=== PATIENT | male | born 1930 | race Caucasian/White ===

== ENCOUNTER 2016-09-11 13:33 | Inpatient (IN) | payer MEDICARE ==
[2016-09-11 14:28] LABS: AUTOMATED BASOPHIL 0.4 % (0-2); AUTOMATED EOSINOPHIL 1.5 % (0-5); AUTOMATED LYMPH 28.2 % (17-44); AUTOMATED MONOCYTE 7.2 % (3-10); AUTOMATED NEUTROPHIL 62.7 % (45-76); MPV 8.7 fL (7.4-10.4)
[2016-09-11 14:37] LABS: BLOOD UREA NITROGEN 16 MG/DL (9-20); CALCIUM 9.6 MG/DL (8.4-10.2); CALCULATED OSMOLALITY 272 MOs/Kg (270-290); CHLORIDE 102 mEq/L (98-107); CPK TOTAL WITH POSSIBLE MB 26 IU/L (55-170); GLUCOSE 196 MG/DL (70-99); SODIUM LEVEL 138 mEq/L (137-146)
[2016-09-11 14:39] LABS: PARTIAL THROMB. TIME 24.3 SEC (22-35)
--- NOTE | 2016-09-11 15:27 | DIRPT ---
CLINICAL DATA: Patient with lower extremity symptoms for 1 week. EXAM: CHEST 2 VIEW COMPARISON: Chest radiograph 08/16/2016 FINDINGS: Stable cardiac and mediastinal contours. Re- demonstrated mass within the left mid lung. Right lung is clear. No pleural effusion or pneumothorax. Mid thoracic spine degenerative changes. IMPRESSION: Re- demonstrated mass within the left mid lung compatible with known carcinoma. No acute cardiopulmonary process. Electronically Signed By: Dung Malhotra M.D. On: 09/11/2016 15:25
--- NOTE | 2016-09-11 16:44 | EDPRACDOC ---
- General Information Chief Complaint: Generalized Weakness Stated Complaint: LEFT LEG WEAKNESS Time Seen by Provider: 09/11/16 16:16 Information Source: Patient Mode of Arrival:: Car Home Medications: Home Medications Ergocalciferol (Vitamin D2) [Vitamin D] 50,000 units PO WESA 03/06/15 Amlodipine [Norvasc] 10 mg PO DAILY 09/11/16 Gabapentin 100 mg PO Q8H PRN 09/11/16 Insulin Glargine [Lantus Pen] 18 units SQ DAILY 09/11/16 Lisinopril 40 mg PO DAILY 09/11/16 Meclizine HCl [Antivert] 25 mg PO TID 09/11/16 Omeprazole 20 mg PO DAILY 09/11/16 Allergies/Adverse Reactions: Allergies Allergy/AdvReac Type Severity Reaction Status Date / Time No Known Allergies Allergy Verified 09/11/16 14:17 - History of Present Illness Exact Onset of Symptoms: Unknown Symptoms Started: Reports: Gradually Weakness: Left: Leg Associated signs and symptoms:: Reports: None ED Past Medical History - History Reviewed Yes Nurses notes reviewed and agree except as marked - Patient Medical History Neurological History: Denies: Cerebrovascular Accident, Dementia Cardiac History: Reports: Coronary Artery Disease, Hypertension GI/ History: Reports: Renal Disease, Renal Failure (ckd-3), Kidney Stones, Gastroesophageal Reflux, Ulcer (perforated in 2010), Diverticulosis Musculoskeletal History: Reports: Arthritis, Osteoarthritis Psychological History: Denies: Depression, Substance Use Disorder Systemic History: Reports: Diabetes. Denies: Hypothyroidism Surgical History: Reports: Other (hemicolectomy, repair perforated ulcer, L rotator cuff, lumbar laminectomy) - Family Medical History Reports: Cardiac Disorders (father- CAD, [place]) - Social Medical History Smoking Status: Former smoker Social History: Denies: Substance Use Disorder EDM Review of Systems - Review of Systems ROS Negative Except as Marked: Yes All systems reviewed and were negative except as marked - Physical Exam Constitutional: Alert (Awake), No apparent distress Oriented to: Time, Person, Place Last recorded Vital Signs: Last Vital Signs Temp 97.5 F 09/11/16 16:29 Pulse 96 09/11/16 16:29 Resp 20 09/11/16 16:29 BP 155/82 09/11/16 16:29 Pulse Ox 92 09/11/16 16:29 Oxygen Pulse Oxygen Saturation 92 O2 Device Room Air Oxygen Flow Rate Fraction of Inspired Oxygen ( FIO2) - HEENT Head: Normal ( normocephalic) Eye Exam: Normal (PERRL, EOMI, Sclera white) Oropharynx: Normal (Pharynx:Moist without exudate,Gums-no swelling) Tympanic Membrane: Normal ENT EAC: Normal TMJ: Normal Nose: No Symptoms Reported (septum midline) Neck: Normal (FROM, trachea at midline) - Respiratory/Cardiovascular Respiratory: Normal - CTA (BBS clear to auscultation without adventitious sounds ) Cardiovascular: Normal (RRR without murmur, gallop or rub) - GI Auscultation: Normal (NABS) Palpation: Normal (Soft,No rebound or guarding, non distended) Tenderness: Non tender Guerrero's Sign: Negative - Musculoskeletal Back: Normal (Non-Tender) Extremities: Normal (Normal tone, Pulses 2+ No cyanosis or edema, FROM) - Integumentary Skin: Normal, Warm, Dry Lymphatics: Normal (no adenopathy) - Neurologic Memory Impaired: Normal Motor Function: Abnormal (WEAKNEES LLE ON FLEXION) Cranial Nerve: Normal (CN II-X11 intact sensation, strength 5/5) Cerebellar: Normal Mood Description: Normal Perception: Normal - Results 09/11/16 14:19 09/11/16 14:19 WBC 9.8 xk/uL (3.8-10.8) 09/11/16 14:19 RBC 4.92 xM/uL (4.70-6.10) 09/11/16 14:19 Hgb 16.3 g/dL (14.0-18.0) 09/11/16 14:19 Hct 47.1 % (42-52) 09/11/16 14:19 MCV 96 fL (80-94) H 09/11/16 14:19 MCH 33.0 pg (27-32) H 09/11/16 14:19 MCHC 34.5 g/dl (33-36) 09/11/16 14:19 RDW 12.3 % (11.5-14.5) 09/11/16 14:19 Plt Count 228 xk/uL (130-400) 09/11/16 14:19 MPV 8.7 fL (7.4-10.4) 09/11/16 14:19 Neut % (Auto) 62.7 % (45-76) 09/11/16 14:19 Lymph % (Auto) 28.2 % (17-44) 09/11/16 14:19 [place] % (Auto) 7.2 % (3-10) 09/11/16 14:19 Eos % (Auto) 1.5 % (0-5) 09/11/16 14:19 Baso % (Auto) 0.4 % (0-2) 09/11/16 14:19 Absolute Neuts (auto) 6.08 xk/uL (1.7-8.2) 09/11/16 14:19 Absolute Lymphs (auto) 2.74 xk/uL (0.65-4.75) 09/11/16 14:19 PT 10.6 SEC (9.2-11.2) 09/11/16 14:19 INR 1.0 09/11/16 14:19 APTT 24.3 SEC (22-35) 09/11/16 14:19 Sodium 138 mEq/L (137-146) 09/11/16 14:19 Potassium 4.1 mEq/L (3.5-5.1) 09/11/16 14:19 Chloride 102 mEq/L (98-107) 09/11/16 14:19 Carbon Dioxide 22 mMOL/L (22-33) 09/11/16 14:19 Anion Gap 18 mEq/L (8-16) H 09/11/16 14:19 BUN 16 MG/DL (9-20) 09/11/16 14:19 Creatinine 1.50 MG/DL (0.66-1.25) H 09/11/16 14:19 Estimated GFR (MDRD) 44 mL/min (>=60) L 09/11/16 14:19 Glucose 196 MG/DL (70-99) H 09/11/16 14:19 Calculated Osmolality 272 MOs/Kg (270-290) 09/11/16 14:19 Calcium 9.6 MG/DL (8.4-10.2) 09/11/16 14:19 Total Bilirubin 1.4 MG/DL (0.2-1.3) H 09/11/16 14:19 AST 42 IU/L (17-59) 09/11/16 14:19 ALT 44 IU/L (21-72) 09/11/16 14:19 Alkaline Phosphatase 112 IU/L (50-160) 09/11/16 14:19 Creatine Kinase 26 IU/L (55-170) L 09/11/16 14:19 Troponin I < 0.01 ng/mL (<.04) 09/11/16 14:19 Total Protein 8.0 G/DL (6.3-8.2) 09/11/16 14:19 Albumin 4.2 G/DL (3.5-5.0) 09/11/16 14:19 Lab Results 09/11/16 09/11/16 09/11/16 14:19 14:19 14:19 WBC 9.8 RBC 4.92 Hgb 16.3 Hct 47.1 MCV 96 H MCH 33.0 H MCHC 34.5 RDW 12.3 Plt Count 228 MPV 8.7 Neut % (Auto) 62.7 Lymph % (Auto) 28.2 [place] % (Auto) 7.2 Eos % (Auto) 1.5 Baso % (Auto) 0.4 Absolute Neuts (auto) 6.08 Absolute Lymphs (auto) 2.74 PT 10.6 INR 1.0 APTT 24.3 Sodium 138 Potassium 4.1 Chloride 102 Carbon Dioxide 22 Anion Gap 18 H BUN 16 Creatinine 1.50 H Estimated GFR (MDRD) 44 L Glucose 196 H Calculated Osmolality 272 Calcium 9.6 Total Bilirubin 1.4 H AST 42 ALT 44 Alkaline Phosphatase 112 Creatine Kinase 26 L Troponin I < 0.01 Total Protein 8.0 Albumin 4.2 - Departure Yes I personally saw and evaluated the patient. Disposition: Admit IP To This Hospital Condition: Good Final Diagnosis: LLE WEAKNESS Instructions: Weakness (General) Referrals: Lisa Clemente MD [Primary Care Provider] - One Week Decision to Admit Time: 18:11 (IKRAM) Decision to admit date: 09/11/16 Decision to admit: from ED
--- NOTE | 2016-09-11 16:58 | DIRPT ---
CLINICAL DATA: LEFT leg weakness which began 1 week ago, improved, and then worsened. EXAM: CT HEAD WITHOUT CONTRAST TECHNIQUE: Contiguous axial images were obtained from the base of the skull through the vertex without intravenous contrast. COMPARISON: 08/19/2015 MR. FINDINGS: No evidence for acute infarction, hemorrhage, mass lesion, hydrocephalus, or extra-axial fluid. Advanced atrophy. Extensive white matter disease. Vascular calcification. Calvarium intact. No sinus or mastoid air fluid levels. IMPRESSION: Negative exam. No acute intracranial findings. Chronic changes as described without features suggestive of large vessel occlusion or RIGHT parasagittal cortical infarct. Electronically Signed By: Doc Falcon M.D. On: 09/11/2016 16:56
[2016-09-11] MEDS ORDERED: ASPIRIN 300 MG SUPP PR ONE (17:10)
[2016-09-11] MEDS ORDERED: ONDANSETRON HCL 4 MG/2 ML VIAL IV PRN (18:16)
[2016-09-11] MEDS ORDERED: GABAPENTIN 100 MG CAP PO PRN (18:16)
[2016-09-11] MEDS ORDERED: LORAZEPAM 1 MG TAB PO PRN (18:16)
[2016-09-11] MEDS ORDERED: ACETAMINOPHEN 325 MG/TAB TABLET PO PRN (18:16)
[2016-09-11] MEDS ORDERED: DEXTROSE 25 GM/50 ML PFS IV PRN (18:22)
[2016-09-11] MEDS ORDERED: GLUCAGON 1 MG VIAL SQ PRN (18:22)
[2016-09-11] MEDS ORDERED: GLUCOSE (ORAL GEL) 15 GM TUBE PO PRN (18:22)
[2016-09-11] MEDS ORDERED: GLARGINE INSULIN (LANTUS) 100 UNITS/ML PEN SQ SCH (19:00)
--- NOTE | 2016-09-11 20:16 | HISTPHYS ---
- Chief Complaint Left-sided weakness - History of Present Illness This is an 86-year-old male with a known history of lung cancer who has not sought treatment for this, who is being admitted tonight due to concern for CVA. Patient and his provide the history, they are good historians. 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 This has continued until the present day, though has improved slightly. In addition, about a week ago he developed weakness is left leg, to the point where he is unable to bring his knee up toward his chest, or lift his left leg. He has had trouble walking, this has worsened over time and got worse to the point where today he was unable to ambulate without a walker. He tells me that he has had no associated pain or fever. Denies any back pain specifically. He says that his leg is so weak that he is basically unable to tell where it will go. No confusion, vision changes or headache. No dizziness or vertigo. No difficulty swallowing or slurred speech, or facial droop. He has never had symptoms like this before. Decided to come to the hospital today due to the fact that he was having more more difficulty walking. - Medical History Cardiac History: Reports: Coronary Artery Disease, Hypertension GI/ History: Reports: Renal Disease, Renal Failure (ckd-3), Kidney Stones, Gastroesophageal Reflux, Ulcer (perforated in 2010), Diverticulosis Musculoskeletal History: Reports: Arthritis, Osteoarthritis Systemic History: Reports: Diabetes. Denies: Hypothyroidism Neurological History: Denies: Cerebrovascular Accident, Dementia Psychological History: Denies: Depression, Substance Use Disorder - Surgical History Reports: Other (hemicolectomy, repair perforated ulcer, L rotator cuff, lumbar laminectomy) - Medictions/Allergies Allergies No Known Allergies Allergy (Verified 09/11/16 14:17) Home Medications Ergocalciferol (Vitamin D2) [Vitamin D] 50,000 units PO WESA 03/06/15 Amlodipine [Norvasc] 10 mg PO DAILY 09/11/16 Gabapentin 100 mg PO Q8H PRN 09/11/16 Insulin Glargine [Lantus Pen] 18 units SQ DAILY 09/11/16 Lisinopril 40 mg PO DAILY 09/11/16 Meclizine HCl [Antivert] 25 mg PO TID 09/11/16 Omeprazole 20 mg PO DAILY 09/11/16 - Family History Reports: Cardiac Disorders (father- CAD, [place]) - Social History Smoking Status: Former smoker Social History: Denies: Substance Use Disorder - Review of Systems Yes All systems reviewed and were negative except as marked - Physical Exam Vital Signs: Initial Vitals Temperature 97.7 F 09/11/16 14:15 Pulse Rate 111 09/11/16 14:15 Respiratory Rate 18 09/11/16 14:15 Blood Pressure 126/72 09/11/16 14:15 Pulse Oxygen Saturation 94 09/11/16 14:15 Constitutional: Alert (Awake, Fully oriented, well appearing. No apparent distress) Oriented to: Time, Person, Place - HEENT Head: Normal (normocephalic,atraumatic, trachea midline) Eye: Normal (EOMI, Sclera white) Oropharynx: Normal (moist) Nose: No Symptoms Reported (without discharge or bleeding) Respiratory: Normal - CTA (Clear to auscultation bilaterally, no wheezing,rales or rhonchi. No use of accessory muscles) Cardiovascular: Normal (RRR, no murmurs, rubs or gallops) - GI Palpation: Normal (soft, non distended and nontender) - Musculoskeletal Extremities: Normal (normal tone, no cyanosis or edema) - Integumentary Skin: Normal (no rashes or lesions) - Neurologic Mood Description: Normal (Fully oriented and appropiate affect) Sensation is intact, plantar flexion and plantar extension are normal bilaterally. He is unable to flex his left hip against any resistance. Unable to lift against gravity, 2/5 strength. Right side is totally normal. Upper extremity strength and sensation are normal and intact. - Focused CV Perfusion Exam Vital Signs: Last Vital Signs Temp 97.7 F 09/11/16 17:43 Pulse 94 09/11/16 19:28 Resp 20 09/11/16 19:28 BP 125/76 09/11/16 19:28 Pulse Ox 90 L 09/11/16 19:28 - Lab Results Laboratory Tests 09/11/16 09/11/16 09/11/16 14:19 14:19 14:19 WBC 9.8 Hgb 16.3 Hct 47.1 Plt Count 228 INR 1.0 Potassium 4.1 BUN 16 Creatinine 1.50 H - Diagnostic Findings Chest x-ray: Known lung mass. CT of the head: No evidence for acute infarction, hemorrhage, mass lesion, hydrocephalus, or extra-axial fluid. Advanced atrophy. Extensive white matter disease. Vascular calcification. Calvarium intact. No sinus or mastoid air fluid levels. - Assessment (1) CVA (cerebral vascular accident) I63.9 - CEREBRAL INFARCTION, UNSPECIFIED Acute Suspected CVA, resulting in left lower extremity weakness. Given the focality of symptoms, could also potentially be some sort of nerve impingement perhaps related to his known malignancy. However, given the patient's recalcitrant towards any sort of medical treatment for his cancer or otherwise, pursuing spinal imaging may be of limited utility. Initial head CT is unremarkable. Patient will be admitted to the hospital using CVA order set he will be kept NPO and he still he is seen by speech therapy, physical therapy and occupational therapy have also been consulted. Will obtain MRI of the brain without contrast tomorrow morning to further evaluate his intracranial perfusion. Patient was started on aspirin, as well as statin. Will check fasting lipids, tsh, RPR and sedimentation rate. (2) Bronchogenic cancer of left lung C34.92 - MALIGNANT NEOPLASM OF UNSP PART OF LEFT BRONCHUS OR LUNG Acute This was discovered about 18 months ago. Patient has elected not to pursue any sort of treatment. (3) DM (diabetes mellitus) type II uncontrolled, periph vascular disorder E11.51 - TYPE 2 DIABETES W DIABETIC PERIPHERAL ANGIOPATH W/O GANGRENE; E11.65 - TYPE 2 DIABETES MELLITUS WITH HYPERGLYCEMIA Acute Check hemoglobin A1c and urine microalbumin. Will monitor fasting blood glucose and use sliding scale insulin to maintain euglycemic state. (4) Chronic kidney disease, stage III (moderate) N18.3 - CHRONIC KIDNEY DISEASE, STAGE 3 (MODERATE) Chronic Follow daily. (5) GERD (gastroesophageal reflux disease) K21.9 - GASTRO-ESOPHAGEAL REFLUX DISEASE WITHOUT ESOPHAGITIS Chronic Continue PPI. (6) HTN (hypertension) I10 - ESSENTIAL (PRIMARY) HYPERTENSION Chronic Will allow permissive hypertension in the 1st 24 hours. Case Care Discussed with: Patient, Family Total Time: 56
[2016-09-11] MEDS: ATORVASTATIN 20 MG TAB PO SCH (20:17)
[2016-09-11] MEDS: MECLIZINE 25 MG TAB PO SCH (20:18)
[2016-09-11] MEDS: ENOXAPARIN 40 MG/0.4 ML PFS SQ SCH (20:18)
[2016-09-11] MEDS: REGULAR INSULIN 100 UNITS/ML - 3 ML VIAL SQ SCH (20:18)
[2016-09-11] MEDS ORDERED: Vaccine Screening Complete SCH (21:00)
[2016-09-12 03:33] VITALS: BMI 21.4
[2016-09-12] MEDS: PANTOPRAZOLE 40 MG TAB PO SCH (05:29)
[2016-09-12] MEDS: MECLIZINE 25 MG TAB PO SCH ×3 (05:29→20:01)
[2016-09-12 05:31] LABS: MPV 9.1 fL (7.4-10.4)
[2016-09-12 05:44] LABS: BLOOD UREA NITROGEN 16 MG/DL (9-20); CALCIUM 9.5 MG/DL (8.4-10.2); CALCULATED OSMOLALITY 272 MOs/Kg (270-290); CHLORIDE 103 mEq/L (98-107); GLUCOSE 90 MG/DL (70-99); LDL (calc.) 83.6 MG/DL (<100); SODIUM LEVEL 141 mEq/L (137-146); VLDL (calc.) 31.4 MG/DL (5-40)
[2016-09-12] MEDS: REGULAR INSULIN 100 UNITS/ML - 3 ML VIAL SQ SCH ×4 (06:25→20:00)
[2016-09-12] MEDS ORDERED: NS 250 ML IV ONE (08:00)
[2016-09-12] MEDS ORDERED: Non-Formulary Medication ITEM (Omeprazole [Omeprazole] 20 MG) PO SCH (09:00)
[2016-09-12] MEDS: GLARGINE INSULIN (LANTUS) 100 UNITS/ML PEN SQ SCH (10:16)
[2016-09-12] MEDS: NS 1,000 ML IV SCH ×2 (10:34→19:58)
--- NOTE | 2016-09-12 14:48 | DIRPT ---
CLINICAL DATA: Left leg weakness for 1 week. History of lung cancer EXAM: MRI HEAD WITHOUT AND WITH CONTRAST TECHNIQUE: Multiplanar, multiecho pulse sequences of the brain and surrounding structures were obtained without and with intravenous contrast. CONTRAST: 14 cc MultiHance intravenous COMPARISON: 08/19/2015 FINDINGS: Calvarium and upper cervical spine: No focal marrow signal abnormality. Orbits: No significant findings. Sinuses and Mastoids: Chronic mucosal thickening/ fluid in bilateral mastoid air cells with clear nasopharynx. Brain: There is various intensity foci of restricted diffusion in the posterior right cerebral hemisphere, cortical and subcortical and located in the posterior frontal lobe and lateral right occipital lobe. These are in the MCA and posterior border zone territories and are consistent with acute and subacute infarcts. Roughly linear lobulated area of enhancement in the cortical and subcortical right posterior frontal lobe measuring up to 15 mm in length. This is likely subacute enhancing infarct, but in the setting of lung cancer follow-up in 3 months is recommended to exclude superimposed early metastatic disease. There is extensive chronic small vessel disease with ischemic gliosis confluent throughout the deep cerebral white matter and patchy in the subcortical region. Small-vessel ischemic changes also present in the joe. Generalized cerebral volume loss. No acute hemorrhage, hydrocephalus, or major vessel occlusion. IMPRESSION: 1. Small acute and subacute infarcts in the right MCA and posterior border zone territories. 2. Enhancement in the posterior right frontal lobe is almost certainly ischemic, but given history of lung cancer three-month follow-up MRI with contrast is recommended. 3. Extensive chronic small vessel disease. Electronically Signed By: Lawrence Garvey M.D. On: 09/12/2016 14:45
--- NOTE | 2016-09-12 14:51 | DIRPT ---
CLINICAL DATA: 86-year-old male with lung cancer. Low back pain. Left leg weakness for the past week. Unsteady gait. Subsequent encounter. EXAM: MRI THORACIC AND LUMBAR SPINE WITHOUT AND WITH CONTRAST TECHNIQUE: Multiplanar and multiecho pulse sequences of the thoracic and lumbar spine were obtained without and with intravenous contrast. CONTRAST: 14 cc MultiHance. COMPARISON: PET-CT 03/31/2015. MR brain performed same date and dictated separately. FINDINGS: MR THORACIC SPINE FINDINGS Overall, no definite metastatic disease noted throughout the thoracic spine. On the post-contrast images (series 12, images 13 and 14), question slight enhancement within the left T10 and left T11 facet may be related to artifact rather than metastatic disease as no accompanying abnormality is seen on STIR sequence. If the patient had any progressive symptoms referable to this level, followup imaging with attention to these regions recommended. Scattered small focal fatty deposits. Scattered minimal to mild degenerative changes most notable C5-6 bulge with slight narrowing ventral aspect of the thecal sac. No abnormal signal or enhancement of the cord. Left chest mass incompletely assessed. This can be further delineated with chest CT. Atherosclerotic type changes of the aorta with slight ectasia. MR LUMBAR SPINE FINDINGS Last fully open disk space is labeled L5-S1. Present examination incorporates from T12-L1 disc space through the S2-S3 level. Conus upper L1 level. No abnormal enhancement of the conus or nerve roots. No osseous destructive lesion to suggest osseous metastatic disease. Atrophic right kidney. Atherosclerotic type changes aorta with ectasia. L1-2: Minimal bulge greater right foraminal position without nerve root compression. L2-3: Minimal facet degenerative changes. L3-4: Mild facet degenerative changes. Mild bulge greater to right. Minimal indentation right ventral thecal sac. L4-5: Prior right hemilaminectomy. Disc degeneration with disc space narrowing. Bulging disc with osteophyte greater extension right foraminal/ lateral position touching but not compressing the exiting right L4 nerve root. No spinal stenosis. L5-S1: Negative. IMPRESSION: MR THORACIC SPINE Overall, no definite metastatic disease noted throughout the thoracic spine. On the post-contrast images (series 12, images 13 and 14), question slight enhancement within the left T10 and left T11 facet may be related to artifact rather than metastatic disease as no accompanying abnormality is seen on STIR sequence. If the patient had any progressive symptoms referable to this level, followup imaging with attention to these regions recommended. No abnormal signal or enhancement of the cord. Left chest mass incompletely assessed. This can be further delineated with chest CT. Atherosclerotic type changes of the aorta with slight ectasia. MR LUMBAR SPINE No evidence of metastatic disease in lumbar region. Atrophic right kidney. Atherosclerotic type changes aorta with ectasia. L3-4 mild bulge greater to right. Minimal indentation right ventral thecal sac. L4-5 prior right hemilaminectomy. Bulging disc with osteophyte greater extension right foraminal/ lateral position touching but not compressing the exiting right L4 nerve root. Electronically Signed By: Jose Greenberg M.D. On: 09/12/2016 14:48
--- NOTE | 2016-09-12 15:49 | GENMEDPROG ---
Chief Complaint: Leg weakness. Subjective Note: 86-year-old gentleman with known lung cancer who has opted not to have any treatment presented to the emergency department with left leg weakness. Given his history of lung cancer MRI of the thoracic and lumbar spine was obtained. Did not show any metastatic disease. MRI of the brain shows an acute infarction and another area with questionable infarction versus tumor. Repeat MRI is recommended in 3 months. Patient this morning states that his leg is working better. Notes Reviewed: Yes Events from last night noted and discussed with Clinical Staff Current Medication List: Reviewed Currently: Reports: Tobacco Use/Hx (Former smoker). Denies: Diarrhea, Fever/ Chills, Ambulating DVT Prophylaxis: Yes - Physical Examination Vital Signs and I&O: Last Vital Signs Temp 98.3 F 09/12/16 11:58 Pulse 86 09/12/16 11:58 Resp 20 09/12/16 11:58 BP 146/77 09/12/16 11:58 Pulse Ox 94 09/12/16 11:58 Oxygen Pulse Oxygen Saturation 94 O2 Device Nasal Cannula Oxygen Flow Rate 2 Fraction of Inspired Oxygen ( FIO2) Intake & Output 09/09/16 09/10/16 09/11/16 09/12/16 23:59 23:59 23:59 23:59 Intake Total 445 Output Total 400 Balance 45 Patient's weight 71.894 kg General: Alert, Oriented x3, No acute distress, Well appearing, Well nourished HEENT: Normal (Normocephalic, atraumatic;EOMI.Sclera white, Nares patent, without discharge or bleeding. No oropharyngeal lesions or erythema. Mucous membranes are dry.) Neck: Non-tender, Full range of motion, Normal Trachea alignment, Normal inspection (No cervical lymphadenopathy. No supraclavicular lymphadenopathy.), No Masses palpable, Supple Lymphatics: Normal (No lymph node swelling or pain.) Respiratory: Normal - CTA (Clear to auscultation bilaterally, no wheezing,rales or rhonchi. No use of accessory muscles) Cardiovascular: Regular rate and rhythm (No bradycardia or tachycardia), Normal S1, No Gallops,Rubs/Murmurs, Normal S2, Good Pedal Pulses (DP pulses 2+ bilaterally) GI: Normal bowel sounds (normal active sounds), Soft (non-distended), Non tender , No hepatospenomegaly, No masses Extremities/Musculoskeletal: negative: Motor 5/5 throughout (Left lower extremity weakness) Skin: Warm,Dry and Intact, No rashes, No significant lesion Neurological: Normal speech. negative: Normal Steady Gait, Strength at 5/5 X4 ext Psych/Mental Status: Appropriate, Normal Affect Lab/DI/Studies Reviewed: Abnormal Lab Results 09/11/16 09/11/16 09/12/16 14:19 20:07 04:45 RBC Hct MCH ESR 22 H Creatinine 1.40 H Estimated GFR (MDRD) 48 L POC Capillary Glucose 133 H Triglycerides 157 H 09/12/16 04:45 RBC 4.43 L Hct 41.9 L MCH 33.3 H ESR Creatinine Estimated GFR (MDRD) POC Capillary Glucose Triglycerides Laboratory Tests 09/11/16 14:19 Hemoglobin A1c 5.4 - Assessment (1) CVA (cerebral vascular accident) Acute I63.9 - CEREBRAL INFARCTION, UNSPECIFIED Qualifiers: CVA mechanism: embolism Precerebral and cerebral artery: middle cerebral artery Laterality of affected vessel: right Qualified Code(s): I63.411 - Cerebral infarction due to embolism of right middle cerebral artery Comment/Plan: MRI confirms right MCA CVA. Continue aspirin, statin, and blood pressure med control. (2) Bronchogenic cancer of left lung Acute C34.92 - MALIGNANT NEOPLASM OF [place] PART OF LEFT BRONCHUS OR LUNG Comment/Plan: This was discovered about 18 months ago. Patient has elected not to pursue any sort of treatment. MRI of the thoracic and lumbar spine obtained today did not show any metastatic disease accountable for his weakness. It is likely all related to acute CVA. MRI of the head did have a questionable area and repeat MRI in 3 months was recommended. (3) DM (diabetes mellitus) type II uncontrolled, periph vascular disorder Acute E11.51 - TYPE 2 DIABETES W DIABETIC PERIPHERAL ANGIOPATH W/O GANGRENE; E11.65 - TYPE 2 DIABETES MELLITUS WITH HYPERGLYCEMIA Comment/Plan: Check hemoglobin A1c and urine microalbumin. Will monitor fasting blood glucose and use sliding scale insulin to maintain euglycemic state. (4) Chronic kidney disease, stage III (moderate) Chronic N18.3 - CHRONIC KIDNEY DISEASE, STAGE 3 (MODERATE) Comment/Plan: Follow daily. (5) GERD (gastroesophageal reflux disease) Chronic K21.9 - GASTRO-ESOPHAGEAL REFLUX DISEASE WITHOUT ESOPHAGITIS Comment /Plan: Continue PPI. (6) HTN (hypertension) Chronic I10 - ESSENTIAL (PRIMARY) HYPERTENSION Qualifiers: Hypertension type: essential hypertension Qualified Code(s): I10 - Essential (primary) hypertension Comment/Plan: Will allow permissive hypertension in the 1st 24 hours. Will restart amlodipine in the a.m.. Continue to hold lisinopril. - Plan Therapy department is recommending discharge to skilled facility given severity of patient's weakness. Disposition Plan: Likely to skilled facility. Case Care Discussed with: Patient, Nursing Staff, Physical Therapy Education/Counseling Given To: Patient Education/Counseling Given Regarding: Diagnosis, Treatment, Prognosis, Disposition Plan Total Time: 45 minutes Critical Care: No [place] Time (>50% in counseling/coordination): No
--- NOTE | 2016-09-12 15:58 | DIRPT ---
CLINICAL DATA: Ischemic TIA. Visual disturbance. EXAM: BILATERAL CAROTID DUPLEX ULTRASOUND TECHNIQUE: Lord scale imaging, color Doppler and duplex ultrasound were performed of bilateral carotid and vertebral arteries in the neck. COMPARISON: Brain MRI - 09/12/2016 FINDINGS: Criteria: Quantification of carotid stenosis is based on velocity parameters that correlate the residual internal carotid diameter with NASCET-based stenosis levels, using the diameter of the distal internal carotid lumen as the denominator for stenosis measurement. The following velocity measurements were obtained: RIGHT ICA: 121/31 cm/sec CCA: 88/13 cm/sec SYSTOLIC ICA/CCA RATIO: 1.4 DIASTOLIC ICA/CCA RATIO: 2.4 ECA: 119 cm/sec LEFT ICA: 181/27 cm/sec CCA: 104/12 cm/sec SYSTOLIC ICA/CCA RATIO: 1.7 DIASTOLIC ICA/CCA RATIO: 2.3 ECA: 183 cm/sec RIGHT CAROTID ARTERY: There is a minimal amount of eccentric echogenic plaque involving the proximal aspect the right common carotid artery (images 2 and 7). There are no elevated peak systolic velocities within the interrogated course of the right internal carotid artery to suggest a hemodynamically significant stenosis. RIGHT VERTEBRAL ARTERY: Antegrade flow LEFT CAROTID ARTERY: There is a minimal amount of eccentric mixed echogenic plaque involving the origin and proximal aspects of the left common carotid artery (manufacturers service representative image 47). There is a moderate to large amount of eccentric mixed echogenic plaque within the left carotid bulb (image 55), extending to involve the origin and proximal aspects of the left internal carotid artery (image 64), resulting in elevated peak systolic velocities within the proximal and mid aspects of the left internal carotid artery (greatest acquired peak systolic velocity within mid ICA measures 181 cm/sec - image 66). LEFT VERTEBRAL ARTERY: Antegrade flow IMPRESSION: 1. Moderate to large amount of left-sided atherosclerotic plaque results in elevated peak systolic velocities within the left internal carotid artery compatible with the higher end of the 50-69% luminal narrowing range. Further evaluation with CTA could be performed as clinically indicated. 2. Minimal amount of right-sided atherosclerotic plaque, not resulting in a hemodynamically significant stenosis. Electronically Signed By: Doc Garvey M.D. On: 09/12/2016 15:55
[2016-09-12] MEDS: ENOXAPARIN 40 MG/0.4 ML PFS SQ SCH (16:43)
[2016-09-12] MEDS: ATORVASTATIN 20 MG TAB PO SCH (16:44)
[2016-09-13] MEDS: MECLIZINE 25 MG TAB PO SCH ×3 (05:22→22:41)
[2016-09-13] MEDS: PANTOPRAZOLE 40 MG TAB PO SCH (05:22)
[2016-09-13] MEDS: REGULAR INSULIN 100 UNITS/ML - 3 ML VIAL SQ SCH ×4 (05:59→22:40)
[2016-09-13 06:55] LABS: MPV 9.1 fL (7.4-10.4)
[2016-09-13 07:38] LABS: BLOOD UREA NITROGEN 15 MG/DL (9-20); CALCULATED OSMOLALITY 270 MOs/Kg (270-290); CHLORIDE 105 mEq/L (98-107); GLUCOSE 96 MG/DL (70-99); SODIUM LEVEL 140 mEq/L (137-146)
[2016-09-13] MEDS: GLARGINE INSULIN (LANTUS) 100 UNITS/ML PEN SQ SCH (07:47)
[2016-09-13] MEDS: AMLODIPINE 10 MG TAB PO SCH (07:47)
[2016-09-13] MEDS ORDERED: ERGOCALCIFEROL (VITAMIN D2) 50000 UNITS CAP PO SCH (09:00)
--- NOTE | 2016-09-13 10:42 | GENMEDPROG ---
Chief Complaint: L leg is stronger Notes Reviewed: Yes Events from last night noted and discussed with Clinical Staff Current Medication List: Reviewed Currently: Reports: Tobacco Use/Hx (Former smoker). Denies: Diarrhea, Fever/ Chills, Ambulating DVT Prophylaxis: Yes - Physical Examination Vital Signs and I&O: Last Vital Signs Temp 97.5 F 09/13/16 08:00 Pulse 87 09/13/16 08:00 Resp 18 09/13/16 08:00 BP 144/80 09/13/16 08:00 Pulse Ox 94 09/13/16 08:00 Oxygen Pulse Oxygen Saturation 94 O2 Device Nasal Cannula Oxygen Flow Rate 2 Fraction of Inspired Oxygen ( FIO2) Intake & Output 09/10/16 09/11/16 09/12/16 09/13/16 23:59 23:59 23:59 23:59 Intake Total 685 Output Total 1200 800 Balance -515 -800 Patient's weight 71.894 kg 72.665 kg General: Alert, Oriented x3, No acute distress, Well appearing, Well nourished HEENT: Normal (Normocephalic, atraumatic;EOMI.Sclera white, Nares patent, without discharge or bleeding. No oropharyngeal lesions or erythema. Mucous membranes are dry.) Neck: Non-tender, Full range of motion, Normal Trachea alignment, Normal inspection (No cervical lymphadenopathy. No supraclavicular lymphadenopathy.), No Masses palpable, Supple Lymphatics: Normal (No lymph node swelling or pain.) Respiratory: Normal - CTA (Clear to auscultation bilaterally, no wheezing,rales or rhonchi. No use of accessory muscles) Cardiovascular: Regular rate and rhythm (No bradycardia or tachycardia), Normal S1, No Gallops,Rubs/Murmurs, Normal S2, Good Pedal Pulses (DP pulses 2+ bilaterally) GI: Normal bowel sounds (normal active sounds), Soft (non-distended), Non tender , No hepatospenomegaly, No masses Extremities/Musculoskeletal: negative: Swelling, Edema, Clubbing, Cyanosis, Motor 5/5 throughout (Left lower extremity weakness) Skin: Warm,Dry and Intact, No rashes, No significant lesion Neurological: Normal speech. negative: Normal Steady Gait, Strength at 5/5 X4 ext Psych/Mental Status: Appropriate, Normal Affect Lab/DI/Studies Reviewed: 09/13/16 06:20 09/13/16 06:20 Laboratory Results - last 24 hr 09/12/16 09/12/16 09/12/16 11:31 16:14 19:58 WBC RBC Hgb Hct MCV MCH MCHC RDW Plt Count MPV Sodium Potassium Chloride Carbon Dioxide Anion Gap BUN Creatinine Estimated GFR (MDRD) Glucose POC Capillary Glucose 88 110 H 160 H Calculated Osmolality Calcium 09/13/16 09/13/16 09/13/16 05:44 06:20 06:20 WBC 5.9 RBC 4.31 L Hgb 14.2 Hct 40.5 L MCV 94 MCH 33.0 H MCHC 35.1 RDW 12.0 Plt Count 173 MPV 9.1 Sodium 140 Potassium 4.1 Chloride 105 Carbon Dioxide 25 Anion Gap 14 BUN 15 Creatinine 1.20 Estimated GFR (MDRD) 57 L Glucose 96 POC Capillary Glucose 109 H Calculated Osmolality 270 Calcium 9.0 - Assessment (1) CVA (cerebral vascular accident) Acute I63.9 - CEREBRAL INFARCTION, UNSPECIFIED Qualifiers: CVA mechanism: embolism Precerebral and cerebral artery: middle cerebral artery Laterality of affected vessel: right Qualified Code(s): I63.411 - Cerebral infarction due to embolism of right middle cerebral artery Comment/Plan: MRI confirms right MCA CVA. Continue aspirin, statin, and blood pressure med control. (2) Bronchogenic cancer of left lung Acute C34.92 - MALIGNANT NEOPLASM OF UNSP PART OF LEFT BRONCHUS OR LUNG Comment/Plan: This was discovered about 18 months ago. Patient has elected not to pursue any sort of treatment. MRI of the thoracic and lumbar spine obtained today did not show any metastatic disease accountable for his weakness. It is likely all related to acute CVA. MRI of the head did have a questionable area and repeat MRI in 3 months was recommended. (3) Coronary atherosclerosis of [place] coronary artery Acute I25.10 - ATHSCL HEART DISEASE OF [place] CORONARY ARTERY W/O ANG PCTRS Qualifiers: [place] vs. transplanted heart: [place] heart Associated angina: without angina pectoris Qualified Code(s): I25.10 - Atherosclerotic heart disease of [place] coronary artery without angina pectoris Comment/Plan: Noted on CT scan (4) DM (diabetes mellitus) type II uncontrolled, periph vascular disorder Acute E11.51 - TYPE 2 DIABETES W DIABETIC PERIPHERAL ANGIOPATH W/O GANGRENE; E11.65 - TYPE 2 DIABETES MELLITUS WITH HYPERGLYCEMIA Comment/Plan: Check hemoglobin A1c and urine microalbumin. Will monitor fasting blood glucose and use sliding scale insulin to maintain euglycemic state. (5) Chronic kidney disease, stage III (moderate) Chronic N18.3 - CHRONIC KIDNEY DISEASE, STAGE 3 (MODERATE) Comment/Plan: Follow daily. (6) GERD (gastroesophageal reflux disease) Chronic K21.9 - GASTRO-ESOPHAGEAL REFLUX DISEASE WITHOUT ESOPHAGITIS Qualifiers: Esophagitis presence: esophagitis presence not specified Qualified Code(s) : K21.9 - Gastro-esophageal reflux disease without esophagitis Comment/Plan: Continue PPI. (7) HTN (hypertension) Chronic I10 - ESSENTIAL (PRIMARY) HYPERTENSION Qualifiers: Hypertension type: essential hypertension Qualified Code(s): I10 - Essential (primary) hypertension Comment/Plan: Will allow permissive hypertension in the 1st 24 hours. Will restart amlodipine in the a.m.. Continue to hold lisinopril. Disposition Plan: Likely to home w/ pt. Case Care Discussed with: Patient, Nursing Staff, Resource Management Education/Counseling Given To: Patient Education/Counseling Given Regarding: Diagnosis Total Time: 38 min Critical Care: No Code: 78710 (12+)
[2016-09-13] MEDS: NS 1,000 ML IV SCH ×2 (12:00→20:10)
[2016-09-13] MEDS: ATORVASTATIN 20 MG TAB PO SCH (17:52)
[2016-09-13] MEDS: ENOXAPARIN 40 MG/0.4 ML PFS SQ SCH (17:52)
--- NOTE | 2016-09-13 18:53 | PCM.CCCON2 ---
Consult Date: 09/13/16 Requesting Physician: Morales Townsend Consulting Doctor: Caitlyn Cardozo Consult Reason: Oncology (lung cancer left upper lobe) Travel Outside of [place] in the Last 3 Months?: No Consultation Note: History of Present Illness: This is an 86-year-old man who I have been following for the last year and a half for a slowly enlarging pulmonary nodule. This was originally found incidentally on a chest x-ray in March of 2015 when he was hospitalized for acute pancreatitis. A CT scan confirmed a 1.8 cm spiculated nodule in the posterior left upper lobe but no adenopathy. PET scan confirmed hypermetabolic activity in the nodule consistent with a bronchogenic carcinoma but the patient refused biopsy or treatment. We have therefore followed him with serial CT scans and most recently just chest x-rays and this has slowly enlarged but he is still essentially asymptomatic. He does have dyspnea on exertion and occasional imbalance. [facility] and the lung lesion was mildly larger at 4.2 cm. However the main concern was his overall status of deterioration, weight loss, probable alcohol abuse, living alone and not eating well. He has now been admitted with a cerebral vascular accident and MRI scan of the brain shows small acute and subacute infarctions in the right middle cerebral artery distribution. There is an enhancement in the posterior right frontal lobe which is likely ischemic and I do not see any evidence of metastatic disease. He is undergoing physical therapy and says he can move his left leg better now. He has had an ultrasound with a moderate to large amount of left-sided plaque in the carotid artery. I understand he is refusing transfer to a rehab facility. He has not been eating well or taking care of himself at home lately. Past Medical History: Coronary artery disease, hypertension, chronic kidney disease, renal lithiasis, COPD, pancreatitis, diverticulosis, osteoarthritis, diabetes, lung carcinoma as described above, gastroesophageal reflux disease, peptic ulcer disease with perforation in 2010. Past Surgical History: Left rotator cuff surgery, lumbar laminectomy, hemicolectomy after a ruptured appendix, and repair of perforated ulcer. Allergies No Known Allergies Allergy (Verified 09/11/16 14:17) Home Medications Ergocalciferol (Vitamin D2) [Vitamin D] 50,000 units PO WESA 03/06/15 Amlodipine [Norvasc] 10 mg PO DAILY 09/11/16 Gabapentin 100 mg PO Q8H PRN 09/11/16 Insulin Glargine [Lantus Pen] 18 units SQ DAILY 09/11/16 Lisinopril 40 mg PO DAILY 09/11/16 Meclizine HCl [Antivert] 25 mg PO TID 09/11/16 Omeprazole 20 mg PO DAILY 09/11/16 Family History: His sister Barbra has cancer and an older brother of leukemia. Social History: Traveled outside the [place] in the last 3 months? No. Former smoker of 30 pack years, but quit in 1983. He has a son and daughter and his daughter is scheduled to have a total hip replacement next week and so is concerned that she will not be available to help him after discharge. He did work in the furniture industry and floor covering. He does admit to drinking alcohol but had stopped temporarily after his pancreatitis. Review of Systems: Noncontributory. Physical Examination: Temperature: 97.6 F (09/13/16 16:00)HR: 95 (09/13/16 18:00)RR: 19 (09/13/16 16: 00)BP: 146/80 (09/13/16 16:00) SAT:90 (09/13/16 16:00) This is a pleasant elderly white male who is awake and oriented. HEENT: pupils are equal, round, reactive to light. Sclera are nonicteric. Posterior pharynx is benign. He has dryness at the corners of his mouth but no overt Olivia. No thyromegaly. No adenopathy is palpated in the cervical, clavicular, axillary or inguinal areas. Lungs are clear to auscultation and percussion. Heart has a regular rate and rhythm with no murmurs or gallops. Abdomen is soft , no masses, no hepatosplenomegaly or tenderness. Extremities are without edema. Neurologic exam is grossly intact. Skin reveals extensive ecchymoses. LAB/DI: Laboratory Results - last 24 hr 09/12/16 09/12/16 09/13/16 15:50 19:58 05:44 WBC RBC Hgb Hct MCV MCH MCHC RDW Plt Count MPV Sodium Potassium Chloride Carbon Dioxide Anion Gap BUN Creatinine Estimated GFR (MDRD) Glucose POC Capillary Glucose 160 H 109 H Calculated Osmolality Calcium Ur Random Microalbumin 14.8 0109/13/16 09/13/16 06:20 06:20 13:16 WBC 5.9 RBC 4.31 L Hgb 14.2 Hct 40.5 L MCV 94 MCH 33.0 H MCHC 35.1 RDW 12.0 Plt Count 173 MPV 9.1 Sodium 140 Potassium 4.1 Chloride 105 Carbon Dioxide 25 Anion Gap 14 BUN 15 Creatinine 1.20 Estimated GFR (MDRD) 57 L Glucose 96 POC Capillary Glucose 165 H Calculated Osmolality 270 Calcium 9.0 Ur Random Microalbumin 09/13/16 16:17 WBC RBC Hgb Hct MCV MCH MCHC RDW Plt Count MPV Sodium Potassium Chloride Carbon Dioxide Anion Gap BUN Creatinine Estimated GFR (MDRD) Glucose POC Capillary Glucose 95 Calculated Osmolality Calcium Ur Random Microalbumin Recommendations: Impression and recommendations: 1. Non-small cell lung cancer with no biopsy proven histology but a slowly steadily enlarging lesion of the left upper lobe. He has not desired aggressive therapy and so we have him on observation only, but I would not consider him necessarily terminal from this diagnosis. 2. New stroke superimposed on old CVA's. I do not find evidence for brain metastasis on MRI scan. 3. Failure to thrive. This patient is not doing well on his own with weight loss and alcohol use as well as poor diet. I think we need to strongly encourage him to go to a rehab facility at the time of discharge, at least temporarily. 4. Alcohol use which I suspect is excessive based on family's history. This would certainly explain some of his decline and previous pancreatitis. I spoke with the patient as well as his daughter and agree that he would do best in a rehabilitation facility, but I am not sure whether he will agree to this. His daughter inquires about hospice coming out, but he does not seem to be terminal from his lung cancer, and hopefully would improve with physical therapy and good nutrition. I think we need to get discharge planning involved and I will follow along with you. We will monitor for any evidence of oral candidiasis. We will schedule him for follow-up at the [facility] at a later date. Thank you for this consultation.
[2016-09-14] MEDS: NS 1,000 ML IV SCH ×3 (04:10→11:41)
[2016-09-14] MEDS: PANTOPRAZOLE 40 MG TAB PO SCH (04:12)
[2016-09-14] MEDS: REGULAR INSULIN 100 UNITS/ML - 3 ML VIAL SQ SCH ×4 (04:12→21:28)
[2016-09-14] MEDS: MECLIZINE 25 MG TAB PO SCH ×3 (04:12→21:11)
[2016-09-14 04:47] LABS: MPV 9.2 fL (7.4-10.4)
[2016-09-14 05:12] LABS: BLOOD UREA NITROGEN 13 MG/DL (9-20); CALCULATED OSMOLALITY 270 MOs/Kg (270-290); CHLORIDE 107 mEq/L (98-107); GLUCOSE 89 MG/DL (70-99); SODIUM LEVEL 141 mEq/L (137-146)
[2016-09-14] MEDS: AMLODIPINE 10 MG TAB PO SCH (07:37)
[2016-09-14] MEDS: GLARGINE INSULIN (LANTUS) 100 UNITS/ML PEN SQ SCH (07:38)
[2016-09-14] MEDS: LISINOPRIL 40 MG TAB PO SCH (12:00)
[2016-09-14] MEDS: ATORVASTATIN 20 MG TAB PO SCH (17:29)
[2016-09-14] MEDS: ENOXAPARIN 40 MG/0.4 ML PFS SQ SCH (17:29)
--- NOTE | 2016-09-14 22:15 | GENMEDPROG ---
Chief Complaint: willing to go to [facility] Notes Reviewed: Yes Events from last night noted and discussed with Clinical Staff Current Medication List: Reviewed Currently: Reports: Tobacco Use/Hx (Former smoker). Denies: Diarrhea, Fever/ Chills, Ambulating DVT Prophylaxis: Yes - Physical Examination Vital Signs and I&O: Last Vital Signs Temp 98.2 F 09/14/16 20:47 Pulse 92 09/14/16 20:47 Resp 18 09/14/16 20:47 BP 136/81 09/14/16 20:47 Pulse Ox 93 09/14/16 20:47 Oxygen Pulse Oxygen Saturation 93 O2 Device Nasal Cannula Oxygen Flow Rate 2 Fraction of Inspired Oxygen ( FIO2) Intake & Output 09/11/16 09/12/16 09/13/16 09/14/16 23:59 23:59 23:59 23:59 Intake Total 685 4045 1497 Output Total 1200 3475 1925 Balance -515 570 -428 Patient's weight 71.894 kg 72.665 kg 72.303 kg General: Alert, Oriented x3, No acute distress, Well appearing, Well nourished HEENT: Normal (Normocephalic, atraumatic;EOMI.Sclera white, Nares patent, without discharge or bleeding. No oropharyngeal lesions or erythema. Mucous membranes are dry.) Neck: Non-tender, Full range of motion, Normal Trachea alignment, Normal inspection (No cervical lymphadenopathy. No supraclavicular lymphadenopathy.), No Masses palpable, Supple Lymphatics: Normal (No lymph node swelling or pain.) Respiratory: Normal - CTA (Clear to auscultation bilaterally, no wheezing,rales or rhonchi. No use of accessory muscles) Cardiovascular: Regular rate and rhythm (No bradycardia or tachycardia), Normal S1, No Gallops,Rubs/Murmurs, Normal S2, Good Pedal Pulses (DP pulses 2+ bilaterally) GI: Normal bowel sounds (normal active sounds), Soft (non-distended), Non tender , No hepatospenomegaly, No masses Extremities/Musculoskeletal: negative: Swelling, Edema, Clubbing, Cyanosis, Motor 5/5 throughout (Left lower extremity weakness) Skin: Warm,Dry and Intact, No rashes, No significant lesion Neurological: Normal speech. negative: Normal Steady Gait, Strength at 5/5 X4 ext Psych/Mental Status: Appropriate, Normal Affect Lab/DI/Studies Reviewed: 09/14/16 03:45 09/14/16 03:45 Laboratory Results - last 24 hr 09/14/16 09/14/16 09/14/16 03:45 03:45 04:08 WBC 6.8 RBC 4.50 L Hgb 14.9 Hct 42.5 MCV 94 MCH 33.1 H MCHC 35.0 RDW 12.2 Plt Count 174 MPV 9.2 Sodium 141 Potassium 3.8 Chloride 107 Carbon Dioxide 20 L Anion Gap 18 H BUN 13 Creatinine 1.10 Estimated GFR (MDRD) > 60 Glucose 89 POC Capillary Glucose 92 Calculated Osmolality 270 Calcium 9.0 09/14/16 09/14/16 09/14/16 12:03 15:48 20:49 WBC RBC Hgb Hct MCV MCH MCHC RDW Plt Count MPV Sodium Potassium Chloride Carbon Dioxide Anion Gap BUN Creatinine Estimated GFR (MDRD) Glucose POC Capillary Glucose 84 74 160 H Calculated Osmolality Calcium - Assessment (1) CVA (cerebral vascular accident) Acute I63.9 - CEREBRAL INFARCTION, UNSPECIFIED Qualifiers: CVA mechanism: embolism Precerebral and cerebral artery: middle cerebral artery Laterality of affected vessel: right Qualified Code(s): I63.411 - Cerebral infarction due to embolism of right middle cerebral artery Comment/Plan: MRI confirms right MCA CVA. Continue aspirin, statin, and blood pressure med control. (2) Coronary atherosclerosis of [place] coronary artery Acute I25.10 - ATHSCL HEART DISEASE OF [place] CORONARY ARTERY W/O ANG PCTRS Qualifiers: [place] vs. transplanted heart: [place] heart Associated angina: without angina pectoris Qualified Code(s): I25.10 - Atherosclerotic heart disease of [place] coronary artery without angina pectoris Comment/Plan: Noted on CT scan (3) HTN (hypertension) Chronic I10 - ESSENTIAL (PRIMARY) HYPERTENSION Qualifiers: Hypertension type: essential hypertension Qualified Code(s): I10 - Essential (primary) hypertension Comment/Plan: On amlodipine & lisinopril. (4) Chronic kidney disease, stage III (moderate) Chronic N18.3 - CHRONIC KIDNEY DISEASE, STAGE 3 (MODERATE) Comment/Plan: Follow daily. (5) DM (diabetes mellitus) type II uncontrolled, periph vascular disorder Acute E11.51 - TYPE 2 DIABETES W DIABETIC PERIPHERAL ANGIOPATH W/O GANGRENE; E11.65 - TYPE 2 DIABETES MELLITUS WITH HYPERGLYCEMIA Comment/Plan: Check hemoglobin A1c and urine microalbumin. Will monitor fasting blood glucose and use sliding scale insulin to maintain euglycemic state. (6) GERD (gastroesophageal reflux disease) Chronic K21.9 - GASTRO-ESOPHAGEAL REFLUX DISEASE WITHOUT ESOPHAGITIS Qualifiers: Esophagitis presence: esophagitis presence not specified Qualified Code(s) : K21.9 - Gastro-esophageal reflux disease without esophagitis Comment/Plan: Continue PPI. 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 Patient has elected not to pursue any sort of treatment. MRI of the thoracic and lumbar spine obtained today did not show any metastatic disease accountable for his weakness. It is likely all related to acute CVA. MRI of the head did have a questionable area and repeat MRI in 3 months was recommended. Disposition Plan: Likely to [facility] Case Care Discussed with: Patient, Nursing Staff, Physical Therapy Education/Counseling Given To: Patient Education/Counseling Given Regarding: Diagnosis, Treatment Total Time: 38 min Critical Care: No Code: 82865 (12+)
[2016-09-15] MEDS: MECLIZINE 25 MG TAB PO SCH ×2 (04:45→13:12)
[2016-09-15] MEDS: PANTOPRAZOLE 40 MG TAB PO SCH (04:45)
[2016-09-15 05:17] LABS: MPV 8.5 fL (7.4-10.4)
[2016-09-15 05:32] LABS: BLOOD UREA NITROGEN 14 MG/DL (9-20); CALCIUM 9.4 MG/DL (8.4-10.2); CALCULATED OSMOLALITY 272 MOs/Kg (270-290); CHLORIDE 106 mEq/L (98-107); GLUCOSE 67 MG/DL (70-99); SODIUM LEVEL 142 mEq/L (137-146)
[2016-09-15] MEDS: REGULAR INSULIN 100 UNITS/ML - 3 ML VIAL SQ SCH ×2 (05:37→12:01)
[2016-09-15] MEDS: GLARGINE INSULIN (LANTUS) 100 UNITS/ML PEN SQ SCH (07:32)
[2016-09-15] MEDS: LISINOPRIL 40 MG TAB PO SCH (07:36)
[2016-09-15] MEDS: AMLODIPINE 10 MG TAB PO SCH (07:36)
--- NOTE | 2016-09-15 10:43 | PCM.DCS92 ---
- Final/Secondary Discharge Diagnosis (1) CVA (cerebral vascular accident) Acute I63.9 - CEREBRAL INFARCTION, UNSPECIFIED Present on Admission: Yes embolism middle cerebral artery right I63.411 - Cerebral infarction due to embolism of right middle cerebral artery Comment: MRI confirms right MCA CVA. Continue aspirin, statin, and blood pressure med control. (2) Coronary atherosclerosis of [place] coronary artery Acute I25.10 - ATHSCL HEART DISEASE OF [place] CORONARY ARTERY W/O ANG PCTRS [place] heart without angina pectoris I25.10 - Atherosclerotic heart disease of [place] coronary artery without angina pectoris Comment: Noted on CT scan (3) HTN (hypertension) Chronic I10 - ESSENTIAL (PRIMARY) HYPERTENSION Present on Admission: Yes essential hypertension I10 - Essential (primary) hypertension Comment: On amlodipine & lisinopril. (4) Chronic kidney disease, stage III (moderate) Chronic N18.3 - CHRONIC KIDNEY DISEASE, STAGE 3 (MODERATE) Present on Admission: Yes Comment: Follow daily. (5) DM (diabetes mellitus) type II uncontrolled, periph vascular disorder Acute E11.51 - TYPE 2 DIABETES W DIABETIC PERIPHERAL ANGIOPATH W/O GANGRENE; E11.65 - TYPE 2 DIABETES MELLITUS WITH HYPERGLYCEMIA Present on Admission: Yes Comment: Check hemoglobin A1c and urine microalbumin. Will monitor fasting blood glucose and use sliding scale insulin to maintain euglycemic state. (6) GERD (gastroesophageal reflux disease) Chronic K21.9 - GASTRO-ESOPHAGEAL REFLUX DISEASE WITHOUT ESOPHAGITIS Present on Admission: Yes esophagitis presence not specified K21.9 - Gastro-esophageal reflux disease without esophagitis Comment: Continue PPI. (7) Bronchogenic cancer of left lung Acute C34.92 - MALIGNANT NEOPLASM OF UNSP PART OF LEFT BRONCHUS OR LUNG Present on Admission: Yes Comment: This was discovered about 18 months ago. Patient has elected not to pursue any sort of treatment. MRI of the thoracic and lumbar spine obtained today did not show any metastatic disease accountable for his weakness. It is likely all related to acute CVA. MRI of the head did have a questionable area and repeat MRI in 3 months was recommended. Discharge Disposition: Long Term Facility Discharge Condition: Improved Cognitive Discharge Status: Unimpaired Fuctional Discharge Status: Walker Assistance Physician Follow up/Referrals: Lisa Clemente MD [Primary Care Provider] - F/U Facility Physician (PER FACILITY PROTOCOL) New Prescriptions: Aspirin (Enteric Coated) [Halfprin] 81 mg PO DAILYWM #100 tablet Discharge Home Medication List Ergocalciferol (Vitamin D2) [Vitamin D2 (ergocalciferol)] 50,000 units PO WESA 03/06/15 [History Confirmed 09/11/16 Last Taken 09/09/16] Amlodipine [Norvasc] 10 mg PO DAILY 09/11/16 [History Confirmed 09/11/16 Last Taken 09/11/16] Gabapentin 100 mg PO Q8H PRN 09/11/16 [History Confirmed 09/11/16 Last Taken 10/27] Insulin Glargine [Lantus Pen] 18 units SQ DAILY 09/11/16 [History Confirmed 10/27 Last Taken 09/11/16] Lisinopril 40 mg PO DAILY 09/11/16 [History Confirmed 09/11/16 Last Taken ] Meclizine HCl [Antivert] 25 mg PO TID 09/11/16 [History Confirmed 09/11/16 Last Taken 09/11/16] Omeprazole 20 mg PO DAILY 09/11/16 [History Confirmed 09/11/16 Last Taken ] Aspirin (Enteric Coated) [Halfprin] 81 mg PO DAILYWM #100 tablet 09/15/16 [Rx Last Taken Unknown] 09/15/16 04:40 09/15/16 04:40 Laboratory Results - last 24 hr 09/14/16 09/14/16 09/14/16 12:03 15:48 20:49 WBC RBC Hgb Hct MCV MCH MCHC RDW Plt Count MPV Sodium Potassium Chloride Carbon Dioxide Anion Gap BUN Creatinine Estimated GFR (MDRD) Glucose POC Capillary Glucose 84 74 160 H Calculated Osmolality Calcium 09/15/16 09/15/16 09/15/16 04:40 04:40 04:58 WBC 7.4 RBC 4.42 L Hgb 14.6 Hct 41.2 L MCV 93 MCH 33.0 H MCHC 35.4 RDW 11.8 Plt Count 173 MPV 8.5 Sodium 142 Potassium 3.5 Chloride 106 Carbon Dioxide 24 Anion Gap 16 BUN 14 Creatinine 1.30 H Estimated GFR (MDRD) 52 L Glucose 67 L POC Capillary Glucose 84 Calculated Osmolality 272 Calcium 9.4 O2 Device: Nasal Cannula Oxygen Flow Rate: 1 Diet at Discharge: Cardiac Activity: As Tolerated - DC Summary Notes Hospital Course Note:: Discharge summary on patient named DEBI OLMSTEAD admitted to [facility] on 09/11/16 by Juan Parham MD. Date of discharge is []. Total Time: 40 MIN Code: 49994 (>30min.) - Physical Exam Vital Signs: Last Vital Signs Temp 98.5 F 09/15/16 08:00 Pulse 86 09/15/16 09:27 Resp 18 09/15/16 08:00 BP 125/81 09/15/16 08:00 Pulse Ox 91 09/15/16 08:00 Oxygen Pulse Oxygen Saturation 91 O2 Device Nasal Cannula Oxygen Flow Rate 1 Fraction of Inspired Oxygen ( FIO2) Constitutional: Alert (Awake, Fully oriented, well appearing. No apparent distress) Oriented to: Time, Person, Place - HEENT Head: Normal (normocephalic,atraumatic, trachea midline) Eye: Normal (EOMI, Sclera white) Oropharynx: Normal (moist) ENT EAC: Normal (No oropharyngeal lesions or erythema. Mucous membranes are dry. ) TMJ: Normal Nose: No Symptoms Reported (without discharge or bleeding) - Respiratory/Cardiovascular Respiratory: Normal - CTA (Clear to auscultation bilaterally, no wheezing,rales or rhonchi. No use of accessory muscles) Cardiovascular: Normal (RRR , Normal S1, S2. No murmurs, rubs, or gallops. PMI non-displaced. Carotids: no carotid bruits. No bradycardia or tachycardia. DP pulses 2+ bilaterally.) - GI Auscultation: Normal (normal active sounds) Palpation: Normal (soft, non distended and nontender) Tenderness: Non tender (No rebound or guarding) - Musculoskeletal Back: Normal (Non-Tender) Extremities: Normal (normal tone, no cyanosis or edema) - Integumentary Skin: Normal (Warm dry no rashes) Lymphatics: Normal (No lymph node swelling or pain.) - Neurologic Memory Impaired: Normal Motor Function: Abnormal (GEN WEAKNESS) Cranial Nerve: Normal (CN II-XII intact sensation, strength 5/5) Cerebellar: negative: Past-Pointing, Tremor Mood Description: Normal (Fully oriented and appropiate affect) Thought: Coherent Perception: Normal (Normal and appropriate affect.)
[2016-09-15 12:33] VITALS: BP 140/71; PULSE 97; TEMP 98.4
== END 2016-09-15 17:00 | DRG 65 ==
LOC: ED 13:33 → PCU 18:17
PROVIDERS: ADMIT Internal Medicine; ATTEND Internal Medicine
DX: I63.411 Cerebral infarction due to embolism of right middle cerebral artery (principal); G81.94 Hemiplegia, unspecified affecting left nondominant side; E11.51 Type 2 diabetes mellitus with diabetic peripheral angiopathy without gangrene; E11.65 Type 2 diabetes mellitus with hyperglycemia; C34.92 Malignant neoplasm of unspecified part of left bronchus or lung; I25.10 Atherosclerotic heart disease of native coronary artery without angina pectoris; I12.9 Hypertensive chronic kidney disease with stage 1 through stage 4 chronic kidney disease, or unspecified chronic kidney disease; N18.3 Chronic kidney disease, stage 3 (moderate); K21.9 Gastro-esophageal reflux disease without esophagitis; M19.90 Unspecified osteoarthritis, unspecified site; Z79.4 Long term (current) use of insulin; Z79.899 Other long term (current) drug therapy; Z87.891 Personal history of nicotine dependence; R62.7 Adult failure to thrive; Z72.89 Other problems related to lifestyle; R63.4 Abnormal weight loss; Z68.24 Body mass index [BMI] 24.0-24.9, adult
CPT/HCPCS: 36415; 70450; 70553; 71020; 72157; 72158; 80048; 80053; 80061; 82043; 82550; 82962; 83036; 84443; 84484; 85025; 85027; 85610; 85651; 85730; 86592; 93005; 93880; 96372; 97162; 99222; 99285; A9577; J1650; J3490